=== PATIENT | female | born 1960 | race Caucasian/White ===

== ENCOUNTER 2017-05-05 18:21 | Emergency (ER) | payer SELFPAY ==
--- NOTE | 2017-05-09 13:09 | ER ---
ADMIT: 05/05/2017 RM/LOC: ER [facility] MR#: [id number] [place], [place] [id number] MARYLU BORA BELL [address] [place] [address] Emergency Room Report SEX: F AGE: 56 : 1960 DATE: 05/05/2017 HISTORY OF PRESENT ILLNESS: The patient is a 56-year-old female with past medical history of hypertension, on amlodipine came to the ER with chief complaint of left shoulder and chest pain, which radiates to the left arm for the last 12 hours. Pain increases with abduction of the left arm, and increases with palpation of the left arm on the acromial process. The patient states she had similar episodes in the past many times. Pain is not pleuritic, and the patient denies any diaphoresis. EKG was negative for any ST or T changes or arrhythmia or Q-waves. Cardiac enzymes, troponin I were negative. Chest x-ray was also noncontributory and negative. PHYSICAL EXAMINATION: HEAD and NECK: Normal. CHEST: Mildly tender in the left shoulder and acromial process. There is no tenderness on the chest. LUNGS: Clear bilaterally. HEART: Normal heart sounds without any murmur or gallops. ABDOMEN: Soft, without any pulsating mass. EXTREMITIES: The patient had no swelling in the lower extremities and no tenderness in the lower extremities. The patient was reassured and was discharged to home. The patient already got aspirin, with return precautions and follow up with the primary doctor as needed with diagnosis of atypical chest pain. Ari Del Castillo MD/ efraín JOB #: [id number] CC: Diallo Marte MD, Attending Physician Silvestre Torres MD, Family Physician
== END 2017-05-05 21:00 | disposition home or self-care (01) ==
LOC: ER 18:21
DX: R07.89 Other chest pain (principal); M25.512 Pain in left shoulder; I10 Essential (primary) hypertension; Z79.899 Other long term (current) drug therapy; Z79.82 Long term (current) use of aspirin; Z88.0 Allergy status to penicillin